=== PATIENT | female | born 1985 | race Two or more races ===

== ENCOUNTER 2024-04-19 03:56 | Inpatient (IN) | payer MEDICAID, OTHER ==
[~2024-04-19] VITALS: Ht 161 cm; Wt 59.0 kg
[2024-04-19] MEDS: CARBOPROST TROMETHAMINE 250 MCG/1ML VIAL IM ONE (04:15)
[2024-04-19] MEDS ORDERED: BUTORPHANOL TARTRATE 2 MG/1 ML VIAL IV PRN ×2 (04:15)
[2024-04-19] MEDS ORDERED: METHYLERGONOVINE MALEATE 0.2 MG/ML AMP IM ONE (04:15)
[2024-04-19] MEDS ORDERED: LIDOCAINE 2%HCL (LOCAL ANESTH.) INJ 20ML MDV IJ PRN (04:15)
[2024-04-19] MEDS: LACT. RINGERS/OXYTOCIN 20UNITS 500 ML IV ONE ×2 (04:20→04:30)
[2024-04-19 05:02] LABS: Basophils # (auto) 0 10 ^3/uL (0-0.2); Basophils % (auto) 0.3 % (0.0-2.0); Eosinophils # (auto) 0.1 10 ^3/uL (0-0.8); Eosinophils % (auto) 1.2 % (0.0-7.0); Hematocrit 36.2 % (36.0-46.0); Hemoglobin 12.4 g/dL (12.2-16.2); Lymphocytes # (auto) 1.6 10 ^3/uL (0.4-5.4); Lymphocytes % (auto) 15.6 % (10.0-50.0); Mean Corpuscular Hemoglobin 29.2 pg (28.0-32.0); Mean Corpuscular Hgb Conc. 34.2 g/dL (32.0-36.0); Mean Corpuscular Volume 85.6 fL (80.0-100.0); Monocytes # (auto) 0.5 10 ^3/uL (0-1.3); Monocytes % (auto) 4.6 % (0.0-12.0); Neutrophils # (auto) 7.8 10 ^3/uL (1.6-8.6); Neutrophils % (auto) 78.3 % (37.0-80.0); Platelet Count (auto) 119 10^3/uL (140-450); Red Blood Cells 4.24 10^6/uL (4.0-5.20); Red Cell Distribution Width 14.8 % (11.8-14.3)
[2024-04-19 05:18] LABS: INR 0.96 (0.9-1.15); Partial Thromboplastin Time 25.3 SEC (24.5-34.5); Prothrombin Time 10.2 sec (9.3-11.8)
[2024-04-19 05:22] LABS: Alanine Aminotransferase 10 U/L (7-40); Albumin 3.5 g/dL (3.2-4.8); Alkaline Phosphatase 208 U/L (46-116); Anion Gap 11 (5-15); Aspartate Aminotransferase 14 U/L (13-40); BUN/Creatinine Ratio 13.1 (10.0-20.0); Blood Urea Nitrogen 8 mg/dL (9-23); Calcium 8.8 mg/dL (8.7-10.4); Carbon Dioxide 19 mmol/L (20-30); Chloride 108 mmol/L (98-107); Glucose 113 mg/dL (74-106); Sodium 138 mmol/L (136-145)
[2024-04-19 05:23] LABS: Bilirubin, Total 0.5 mg/dL (0.2-1.0); Total Protein 5.8 g/dL (5.7-8.2)
[2024-04-19] MEDS: LACTATED RINGER'S 1,000 ML IV SCH (05:56)
[2024-04-19 07:00] VITALS: BP 98/59; PULSE 71; RESP 16; TEMP 98.6
[2024-04-19 11:00] VITALS: BP 98/59; PULSE 71; RESP 16; TEMP 98.6
[2024-04-19] MEDS ORDERED: ACETAMINOPHEN 325 MG TAB PO PRN (11:30)
[2024-04-19] MEDS: DERMOPLAST 60ML BOTTLE TOP PRN (12:06)
[2024-04-19] MEDS: WITCH HAZEL-GLYCERIN PAD TOP PRN (12:07)
[2024-04-19] MEDS: PHISODERM TOP SOLN 240ML BTL TOP PRN (12:07)
[2024-04-19] MEDS: POTASSIUM CHL 20 Meq TABLET PO ONE (12:12)
[2024-04-19] MEDS: IBUPROFEN 600 MG TAB PO PRN (12:12)
[2024-04-19 15:00] VITALS: BP 93/58; PULSE 71; RESP 18; TEMP 99.2
[2024-04-19 18:46] VITALS: BP 122/83; PULSE 90; RESP 16; TEMP 98.6; O2SAT 99
[2024-04-19] MEDS: DOCUSATE SOD 100 MG CAP PO SCH (21:32)
[2024-04-19 23:00] VITALS: BP 92/54; PULSE 68; RESP 16; TEMP 98.2; O2SAT 100
[2024-04-20] MEDS ORDERED: IBU600T PO (01:14)
[2024-04-20] MEDS ORDERED: PREN-96 PO (01:14)
[2024-04-20] MEDS ORDERED: DOCU-265 PO (01:14)
[2024-04-20 03:30] VITALS: BP 91/54; PULSE 75; RESP 16; TEMP 98.4; O2SAT 98
[2024-04-20 07:07] LABS: RPR Non Reactive (Non Reactive)
[2024-04-20 07:20] VITALS: BP 86/55; PULSE 81; RESP 18; TEMP 98.2; O2SAT 96
[2024-04-20 07:32] LABS: Basophils # (auto) 0 10 ^3/uL (0-0.2); Basophils % (auto) 0.3 % (0.0-2.0); Eosinophils # (auto) 0.2 10 ^3/uL (0-0.8); Eosinophils % (auto) 1.6 % (0.0-7.0); Hematocrit 32.9 % (36.0-46.0); Hemoglobin 11.3 g/dL (12.2-16.2); Lymphocytes # (auto) 1.8 10 ^3/uL (0.4-5.4); Mean Corpuscular Hemoglobin 29.2 pg (28.0-32.0); Mean Corpuscular Hgb Conc. 34.3 g/dL (32.0-36.0); Mean Corpuscular Volume 85.2 fL (80.0-100.0); Monocytes # (auto) 0.7 10 ^3/uL (0-1.3); Monocytes % (auto) 5.4 % (0.0-12.0); Neutrophils # (auto) 9.5 10 ^3/uL (1.6-8.6); Neutrophils % (auto) 77.7 % (37.0-80.0); Platelet Count (auto) 120 10^3/uL (140-450); Red Blood Cells 3.87 10^6/uL (4.0-5.20); Red Cell Distribution Width 14.9 % (11.8-14.3); White Blood Cell 12.2 10^3/uL (4.4-10.8)
[2024-04-20 10:50] VITALS: BP 94/63; PULSE 76; RESP 16; TEMP 99.1; O2SAT 99
[2024-04-20] MEDS: POTASSIUM CHL 20 Meq TABLET PO ONE (14:05)
== END 2024-04-20 16:45 | disposition home or self-care (01) | DRG 560 ==
LOC: LDRP 03:56 → EDBD 03:56 → LDRP 08:08
PROVIDERS: ADMIT Obstetrics & Gynecology; ATTEND Obstetrics & Gynecology
PROC: 10E0XZZ Delivery of Products of Conception, External Approach (ICD-10-PCS; principal; 2024-04-19)
PROC: 0KQM0ZZ Repair Perineum Muscle, Open Approach (ICD-10-PCS; 2024-04-19)
DX: O70.1 Second degree perineal laceration during delivery (principal); Z37.0 Single live birth; O71.89 Other specified obstetric trauma; Z3A.38 38 weeks gestation of pregnancy
CPT/HCPCS: 36415; 59025; 59409; 80053; 85025; 85610; 85730; 86592; 86703; 86706; 86762; 86803; 86850; 86900; 86901; 94760; 96360; 96361; 96365; 96366; G0378